=== PATIENT | female | born 1980 | race Caucasian/White ===

== ENCOUNTER 2018-07-08 18:12 | Emergency (ER) | payer MEDICAID ==
[~2018-07-08] VITALS: Wt 75.6 kg
[2018-07-08 18:14] VITALS: BP 150/83; PULSE 82; RESP 19
[2018-07-08] MEDS ORDERED: HYDROCODONE/APAP (5/325) TAB PO ONE (20:30)
--- NOTE | 2018-07-08 20:45 | ERD ---
ER Documentation Chief Complaint Chief Complaint bib self, cc: headache, sensitive to light, x 1 week HPI This is a 38-year-old female presents emergency department with complaints of right lower tooth pain. Had a tooth procedure on her tooth 2 days ago. LMP: Stated it was this month. . Denies headache, head injury, loss of consciousness, dizziness, neck pain, neck stiffness, throat pain, difficulty swallowing, difficulty breathing lying flat, shoulder pain, chest pain, back pain, abdominal pain, nausea, vomiting, constipation, diarrhea, urinary symptoms, or possibility being , loss of bowel and bladder control, trauma, injury, falls, difficulty walking due to pain, numbness or tingling sensation, calf pain, recent travel, recent major surgery in the last 3 weeks, calf pain, recent long travel, recent exposure to any illness, recent antibiotic use in the last 3 months, fever, chills, seizures. Past medical history: Denies. Surgical history: Denies. Social: Denies smoking, use of alcoholic beverages, use of illegal drugs. ROS All systems reviewed and are negative except as per history of present illness. Medications Home Meds Active Scripts Tramadol HCl (Tramadol HCl) 50 Mg Tablet, 50 MG PO Q4 PRN for PAIN, #5 TAB Prov:PATRICIAILABANKESHAVAR F 07/08/18 Naproxen* (Naprosyn*) 500 Mg Tablet, 500 MG PO BID PRN for PAIN AND/OR INFLAMMATION, #30 TAB Prov:PASILABAN,KLAR F 07/08/18 Allergies Allergies: Coded Allergies: No Known Allergy (Unverified , 07/08/18) PMhx/Soc Medical and Surgical Hx: pt denies Medical Hx, pt denies Surgical Hx Hx Alcohol Use: No Hx Substance Use: No Hx Tobacco Use: No Smoking Status: Never smoker Physical Exam Vitals Vital Signs Date Temp Pulse Resp B/P (MAP) Pulse Ox O2 O2 Flow FiO2 Time Delivery Rate 07/08/18 98.2 82 19 150/83 100 18:14 (105) Physical Exam Const: No acute distress Head: Atraumatic Eyes: Normal Conjunctiva ENT: Normal External Ears, Nose and Mouth. Throat/mouth: Right lower second premolar has a postprocedure appearance/pasting. No gum swelling. No tongue swelling. Neck: Full range of motion. No meningismus. No neck stiffness. No signs of meningeal irritation. Resp: Clear to auscultation bilaterally Cardio: Regular rate and rhythm, no murmurs Abd: Soft, non tender, non distended. Normal bowel sounds Skin: No petechiae or rashes Back: No midline or flank tenderness Ext: No cyanosis, or edema Neur: Awake and alert. Symmetrical face. No facial droop. No neurological deficits. Ambulatory with steady gait. Psych: Normal Mood and Affect Results 24 hrs Current Medications Medications Dose Sig/Nirav Start Time Status Last (Trade) Ordered Route PRN Stop Time Admin Dose Reason Admin 1 tab ONCE ONCE 07/08/18 DC Acetaminophen PO 20:30 / 07/08/18 20:34 Hydrocodone Bitart (Garden (5/325)) Ibuprofen 800 mg ONCE ONCE 07/08/18 DC 07/08/18 (Motrin) PO 21:00 20:39 07/08/18 21:01 Procedures/MDM Diagnostic tests: Clinical exam. Treatment: Garden. Motrin. Re-evaluation: Denies pain. Differential diagnosis I have low suspicion for facial cellulitis, Choi's palsy, mastoiditis, peritonsillar abscess, sepsis, meningitis. Final diagnosis: Dental pain. Prescription: Motrin. Follow-up with PCP in the next 24-48 hours. Follow-up with dentist in the next 24-48 hours. Come back here in the emergency department for any new symptoms or any worsening symptoms. All questions and concerns were answered. Patient and family members verbalized understanding and agreed with plan of care. Hemodynamically stable on discharge. Departure Diagnosis: Primary Impression: Toothache Condition: Stable Additional Instructions: Follow-up with PCP in the next 24-48 hours. Follow-up with dentist in the next 24-48 hours. Come back here in the emergency department for any new symptoms or any worsening symptoms. MONICA SERRANO Jul 08, 2018 20:45
[2018-07-08] MEDS ORDERED: NAPR-985 PO (20:46)
[2018-07-08] MEDS ORDERED: TRAM50TA2 PO (20:47)
[2018-07-08] MEDS ORDERED: IBUPROFEN 800 MG TAB PO ONE (21:00)
== END 2018-07-08 21:21 | disposition home or self-care (01) ==
LOC: FTE 18:12
DX: K08.89 Other specified disorders of teeth and supporting structures (principal)
CPT/HCPCS: Z7502; Z7610; 99282